=== PATIENT | female | born 2000 | race Hispanic/Latino ===

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

== ENCOUNTER 2021-09-08 21:02 | Observation (INO) | payer OTHER, SELFPAY ==
[2021-09-08] MEDS ORDERED: Ketorolac Tromethamine 30 MG/ML VIAL ONE (21:16)
[2021-09-08 23:14] LABS: #Lymphocytes 2.1 thou/uL (1.20-3.40); #Monocytes 0.8 thou/uL (0.11-0.59); #Neutrophils 13.1 thou/uL (1.40-6.50); %Basophils 0.2 % (0.0-1.0); %Eosinophils 0.3 % (0.0-10.0); %Lymphocytes 12.9 % (21.0-51.0); %Monocytes 5.3 % (0.0-10.0); %Neutrophils 81.4 % (42.0-75.0); Hemoglobin 13.3 g/dL (12.0-16.0); Mean Corpuscular HGB CONC 33.5 g/dL (32.0-36.0); Mean Corpuscular Hemoglobin 31.8 pg (27.0-31.0); Mean Platelet Volume 6.2 fL (7.4-10.4); Platelet Count 359 thou/uL (130-400); Red Blood Cell (RBC) Count 4.18 mill/uL (4.20-5.40); White Blood Cell (WBC) Count 16.1 thou/uL (4.8-10.8)
[2021-09-08] MEDS ORDERED: Ondansetron PF 4 MG/2 ML Vial IVP PRN (23:16)
[2021-09-08] MEDS ORDERED: Dextrose 50% Abboject 50 ML SYRINGE SLOW IVP PRN (23:16)
[2021-09-08] MEDS ORDERED: Dextrose 5% in Water 1,000 ML IV PRN (23:16)
[2021-09-08] MEDS ORDERED: Morphine 4 MG/ML VIAL SLOW IVP PRN (23:16)
[2021-09-08] MEDS ORDERED: Morphine 4 MG/ML VIAL ONE (23:16)
[2021-09-08] MEDS ORDERED: hydrALAZINE 20 MG/ML VIAL SLOW IVP PRN (23:16)
[2021-09-08] MEDS ORDERED: Cyclobenzaprine 10 MG TAB PO PRN (23:20)
[2021-09-08] MEDS ORDERED: traMADol HCl 50 MG TAB PO PRN ×2 (23:20)
[2021-09-08 23:23] LABS: Prothrombin Time 12.8 sec (12.0-14.7)
[2021-09-08 23:24] LABS: PTT 31.9 sec (22.9-36.1)
[2021-09-08 23:33] LABS: BHCG - Serum Negative (NEGATIVE); Pregs Control Background? CLEAR/WHITE (CLR/WHITE); Pregs Control Bar Appear? YES (CONTROL BAR)
[2021-09-08] MEDS ORDERED: Ondansetron PF 4 MG/2 ML Vial ONE (23:33)
[2021-09-08] MEDS ORDERED: Ketorolac Tromethamine 30 MG/ML VIAL IVP SCH (23:59)
[2021-09-09 00:19] LABS: ALT (SGPT) 12 U/L (8-55); AST (SGOT) 18 U/L (5-34); Alcohol Less than 10 mg/dL (Less than 10); Alkaline Phosphatase 109 U/L (40-110); Anion Gap 15 mmol/L (10-20); BUN (Urea Nitrogen) 15 mg/dL (7.0-18.7); Bilirubin, Total 0.3 mg/dL (0.2-1.2); Calc. Creatinine Clearance 0 mL/min (70-130); Calcium 9.8 mg/dL (7.8-10.44); Carbon Dioxide 23 mmol/L (22-29); Chloride 106 mmol/L (98-107); Globulin 3.3 g/dL (2.4-3.5); Glucose 98 mg/dL (70-105); Magnesium 2.1 mg/dL (1.6-2.6); Phosphorus 3.4 mg/dL (2.3-4.7); Potassium 3.8 mmol/L (3.5-5.1); Protein, Total 8.3 g/dL (6.0-8.3); Sodium 140 mmol/L (136-145)
[2021-09-09 00:46] VITALS: BMI 21.8
[2021-09-09] MEDS ORDERED: Ketorolac Tromethamine 30 MG/ML VIAL IVP SCH (01:00)
[2021-09-09] MEDS: Sodium Chloride 0.9% 1,000 ML IV SCH ×2 (01:16→10:34)
[2021-09-09 02:32] LABS: SARS-CoV-2 NAA Rapid Test Not Detected (NotDetected)
[2021-09-09 02:34] LABS: Amphetamine Not Detected (NotDetected); Barbiturates Screen Not Detected (NotDetected); Benzodiazepine Screen Not Detected (NotDetected); Cocaine Metabolite Screen Not Detected (NotDetected); Methadone Not Detected (NotDetected); Methamphetamine Not Detected (NotDetected); Opiate Screen Detected (NotDetected); Oxycodone Screen Not Detected (NotDetected); Phencyclidine (PCP) Not Detected (NotDetected); THC/Cannabinoid Screen Not Detected (NotDetected); Tricyclic Screen Not Detected (NotDetected)
[2021-09-09] MEDS: Acetaminophen 500 MG TAB PO SCH ×2 (05:16→13:21)
[2021-09-09] MEDS: Ketorolac Tromethamine 30 MG/ML VIAL IVP SCH ×2 (05:17→13:23)
[2021-09-09] MEDS ORDERED: Polyethylene Glycol 3350 17 GM Packet PO SCH (09:00)
[2021-09-09] MEDS ORDERED: Senokot S 8.6-50 MG TAB PO SCH (09:00)
[2021-09-09] MEDS ORDERED: Famotidine 20 MG TAB PO SCH (09:00)
[2021-09-09] MEDS: Gabapentin 100 MG CAP PO SCH ×2 (09:11→15:34)
[2021-09-09] MEDS ORDERED: Bupivacaine PF 0.5% 30 ML VIAL ONE (11:34)
[2021-09-09] MEDS ORDERED: EPINEPHrine 1 MG/ML AMP ONE (11:34)
[2021-09-09] MEDS ORDERED: Neomycin-Polymyxin 1 ML AMP ONE (11:34)
[2021-09-09] MEDS ORDERED: Midazolam HCl 2 mg/2 ml Vial ONE (11:41)
[2021-09-09] MEDS ORDERED: ceFAZolin (BATCH) 2 GM/100 ML BAG ONE (11:43)
[2021-09-09] MEDS ORDERED: Dexmedetomidine 200 MCG/2 ML VIAL ONE (11:44)
[2021-09-09] MEDS ORDERED: fentaNYL Citrate/PF 100 MCG/2 ML SYRINGE ONE (11:44)
[2021-09-09] MEDS ORDERED: Lidocaine 1% PF 5 ML VIAL ONE (11:57)
[2021-09-09] MEDS ORDERED: Rocuronium Bromide 10 MG/ML (10ML VIAL) ONE (11:57)
[2021-09-09] MEDS ORDERED: Ondansetron PF 4 MG/2 ML Vial ONE (11:57)
[2021-09-09] MEDS ORDERED: PROPOFOL 200 MG/20 ML VIAL ONE (11:57)
[2021-09-09] MEDS ORDERED: Glycopyrrolate 0.2 MG/ML 5 ML SYRINGE ONE (11:57)
[2021-09-09] MEDS ORDERED: Meperidine HCl/PF 25 MG/ML VIAL SLOW IVP PRN (13:36)
[2021-09-09] MEDS ORDERED: Promethazine HCl 25 MG/ML VIAL IM PRN (13:36)
[2021-09-09] MEDS ORDERED: Promethazine HCl 25 MG/ML VIAL IVPB PRN (13:36)
[2021-09-09] MEDS ORDERED: Ondansetron HCl/PF 4 MG/2 ML Vial IVP PRN (13:36)
[2021-09-09] MEDS ORDERED: traMADol HCl 50 MG TAB PO PRN (13:44)
[2021-09-09 15:44] VITALS: BP 106/62; TEMP 97.3
[2021-09-09] MEDS ORDERED: traMADol HCl 50 MG TAB PO SCH (18:00)
== END 2021-09-09 18:10 | disposition home or self-care (01) ==
LOC: ERS 21:02 → SJJU 23:16
PROVIDERS: ADMIT Surgery; ATTEND Surgery
PROC: 0PSB04Z Reposition Left Clavicle with Internal Fixation Device, Open Approach (ICD-10-PCS; principal; 2021-09-09)
DX: S42.022A Displaced fracture of shaft of left clavicle, initial encounter for closed fracture (principal); G89.11 Acute pain due to trauma; R20.2 Paresthesia of skin; Z20.822 Contact with and (suspected) exposure to COVID-19; W01.0XXA Fall on same level from slipping, tripping and stumbling without subsequent striking against object, initial encounter; Y93.K1 Activity, walking an animal
CPT/HCPCS: 36415; 72125; 76000; 80053; 80306; 80307; 83735; 84100; 84703; 85025; 85610; 85730; 86850; 86900; 86901; 96372; 96374; 96375; 96376; C1713; G0378; J0171; J0690; J1885; J2250; J2270; J2405; J2704; J7050; L3650; S0020; U0002

== ENCOUNTER 2021-10-09 15:23 | Outpatient (CLI) | payer MEDICAID | END 2021-10-09 15:24 | disposition home or self-care (01) | LOC: BICULT 15:23 | PROVIDERS: ATTEND Family Medicine | DX: N92.6 Irregular menstruation, unspecified (principal) | CPT/HCPCS: 76856; 93976 ==

== ENCOUNTER 2023-05-31 20:53 | Emergency (ER) | payer BC ==
[2023-05-31] MEDS ORDERED: Ibuprofen 800 MG TAB ONE (21:58)
== END 2023-05-31 23:36 | disposition home or self-care (01) ==
LOC: ERS 20:53
DX: M25.561 Pain in right knee (principal); M25.562 Pain in left knee